=== PATIENT | female | born 1980 | race Caucasian/White ===

== ENCOUNTER 2018-08-27 14:28 | Outpatient (CLI) | payer BC ==
[~2018-08-27 14:28] MED LIST: NABUMETONE500 MG PO; NIFE60TA3 PO; OSEL75CA PO; PERCOCET 5/3251 TAB PO; SYNTHROID200 MCG
== END 2018-08-28 10:31 | disposition home or self-care (01) ==
LOC: MAMO-SONO 14:28
DX: Z12.31 Encounter for screening mammogram for malignant neoplasm of breast (principal); N60.11 Diffuse cystic mastopathy of right breast; N60.12 Diffuse cystic mastopathy of left breast; E04.1 Nontoxic single thyroid nodule

== ENCOUNTER 2018-08-30 10:05 | Outpatient (CLI) | payer BC | END 2018-08-30 10:09 | disposition home or self-care (01) | LOC: SONOGRAMA 10:05 | DX: R12 Heartburn (principal); K30 Functional dyspepsia; R11.0 Nausea; K59.09 Other constipation; R19.7 Diarrhea, unspecified; R14.0 Abdominal distension (gaseous); Z86.010 Personal history of colon polyps; K57.30 Diverticulosis of large intestine without perforation or abscess without bleeding ==

== ENCOUNTER 2018-08-30 11:50 | Outpatient (CLI) | payer BC | END 2018-08-30 15:00 | disposition home or self-care (01) | LOC: LAB 11:50 | DX: K30 Functional dyspepsia (principal); R11.0 Nausea; K59.09 Other constipation; R14.0 Abdominal distension (gaseous); Z86.010 Personal history of colon polyps; K57.30 Diverticulosis of large intestine without perforation or abscess without bleeding; R19.8 Other specified symptoms and signs involving the digestive system and abdomen ==

== ENCOUNTER 2018-09-07 14:33 | Outpatient (CLI) | payer BC | END 2018-09-07 14:37 | disposition home or self-care (01) | LOC: RAD 14:33 | DX: D48.0 Neoplasm of uncertain behavior of bone and articular cartilage (principal) ==